=== PATIENT | female | born 1985 | race American Indian/Alaskan Native ===

== ENCOUNTER 2016-09-25 14:57 | Outpatient (CLI) | payer MEDICAID ==
[2016-09-25] MEDS ORDERED: LACTATED RINGERS 500 ML IV ONE (15:17)
[2016-09-25 16:10] VITALS: BP 126/77
[2016-09-25 17:07] LABS: Bacteria,Urine 1+ /HPF (Negative); Bilirubin,Urine NEG (Negative); Blood,Urine NEG (Negative); Ketones,Urine NEG (Negative); Leukocyte Esterase,Urine LG (Negative); Mucus,Urine 3+ /HPF; Nitrite,Urine NEG (Negative); Protein,Urine <15 mg/dL mg/dL (Negative); Urobilinogen,Urine < 2.0 mg/dL (<2.0)
== END 2016-09-25 18:40 | disposition home or self-care (01) ==
LOC: TRG 14:57
PROVIDERS: ATTEND Obstetrics & Gynecology
DX: O47.03 False labor before 37 completed weeks of gestation, third trimester (principal); Z3A.33 33 weeks gestation of pregnancy
CPT/HCPCS: 81001; J7120

== ENCOUNTER 2016-10-21 14:20 | Outpatient (CLI) | payer MEDICAID ==
[2016-10-21 15:05] VITALS: BP 109/60
[2016-10-21] MEDS ORDERED: LACTATED RINGERS 500 ML IV ONE (16:24)
== END 2016-10-21 17:17 | disposition home or self-care (01) ==
LOC: TRG 14:20
PROVIDERS: ATTEND Obstetrics & Gynecology
DX: O47.03 False labor before 37 completed weeks of gestation, third trimester (principal); Z3A.36 36 weeks gestation of pregnancy
CPT/HCPCS: 59025

== ENCOUNTER 2016-10-29 20:53 | Outpatient (CLI) | payer MEDICAID ==
[2016-10-29] MEDS ORDERED: VISTARIL PO ONE (21:24)
[2016-10-29 22:02] VITALS: BP 119/61
== END 2016-10-29 22:47 | disposition home or self-care (01) ==
LOC: TRG 20:53
PROVIDERS: ATTEND Obstetrics & Gynecology
DX: O47.1 False labor at or after 37 completed weeks of gestation (principal); Z3A.38 38 weeks gestation of pregnancy
CPT/HCPCS: 59025; 82962; Q0177

== ENCOUNTER 2016-11-10 21:03 | Inpatient (IN) | payer MEDICAID ==
[2016-11-10] MEDS ORDERED: SUBLIMAZE IV PRN (21:32)
[2016-11-10] MEDS ORDERED: XYLOCAINE 2% INFILTRATI ONE (21:32)
[2016-11-10] MEDS ORDERED: STADOL IV PRN (21:32)
[2016-11-10] MEDS ORDERED: BRETHINE IVP PRN (21:32)
[2016-11-10] MEDS ORDERED: MINERAL OIL PO PRN (21:32)
[2016-11-10] MEDS ORDERED: ePHEDrine SULFATE IV PRN ×2 (21:32→23:38)
[2016-11-10] MEDS ORDERED: PITOCin/NS 20 UNIT/1000ML DRIP 20 UNITS/1,000 ML BAG IV SCH (22:00)
[2016-11-10] MEDS ORDERED: PITOCin/NS 30 UNIT/500ML 30,000 MILLIUNITS/500 ML BAG IV ONE (22:05)
[2016-11-10] MEDS: LACTATED RINGERS 1,000 ML IV SCH ×2 (22:05→23:06)
[2016-11-10 22:09] LABS: Hematocrit 38.3 % (30.3-42.9); Hemoglobin 12.5 gm/dl (10.1-14.3); Mean Corpuscular HGB Conc 33 % (30-34); Mean Corpuscular Hemoglobin 26 pg (28-32); Mean Corpuscular Volume 80 fl (79-97); Platelet Count 178 K/mm3 (140-440); Red Cell Distribution Width 15.5 % (13.2-15.2); White Blood Count 8.9 K/mm3 (4.5-11.0)
--- NOTE | 2016-11-10 22:48 | History and Physical Report ---
History of Present Illness Date of examination: 11/10/16 Date of admission: 11/10/16 21:23 Chief complaint: SROM @ 1800 today, clear fluid History of present illness: EDC Calculations 11/12/2016 by early 1st trimester u/s Past History : 4 Term Births: 2 Premature Births: 1 Living Children: 1 Para: 3 Mult. Births: 0 Aborta: 0 Elect. Ab: 0 Spont. Ab: 0 # 1 Delivery date: 09/20 Weeks Gestation: 20 Sex: Male Comments: incompetent cervix # 2 Delivery date: 10/11/2008 Weeks Gestation: 41 labor: no Delivery type: Hours of labor: 16 Anesthesia type: epidural Delivery location: [facility] Infant Sex: Male weight: 8-1 Name: Chaitanya Comments: +cerclage # 3 Delivery date: 02/02/2010 Weeks Gestation: 39 Delivery type: Vaginal Hours of labor: 6 Anesthesia type: none Delivery location: [facility] Infant Sex: female weight: 7.56 Name: Saundra Comments: cerclage Past Medical History: Hypothyroidism (2015) Past Surgical History: Cerclage (2008) Cerclage (2009) Past Medical History Surgery (Non-fish tender): Cerclage (2008) Cerclage (2009) Abnormal PAP: negative LOUIS Exposure: negative Infertility: negative Uterine Anomaly: negative Uterine Surgery (not C/S): negative Other Gynecologic Problems: negative Social Hx: single, no etoh, no illicit drug use, no tobacco use Smoking History: Patient has never smoked. Patient is single Genetic History Congenital Heart Defect: Mom: no Dad: no Omar Disease: Mom: no Dad: no Thalassemia Mom: no Dad: no Neural Tube Defect Mom: no Dad: no Down's Syndrome Mom: no Dad: no Osman-Sachs Mom: no Dad: no Sickle Cell Disease/Trait Mom: no Dad: no Hemophilia Mom: no Dad: no Muscular Dystrophy Mom: no Dad: no Cystic Fibrosis Mom: no Dad: no [place] Chorea Mom: no Dad: no Mental Retardation Mom: no Dad: no Fragile X Mom: no Dad: no Other Genetic/Chromosomal Disorder Mom: no Dad: no Child w/other defect Mom: no Dad: no Enviromental Exposures Xray Exposure: no Medication, drug, or alcohol use since LMP: no Chemical/Other Exposure: no Exposure to Cat Liter: no Hx of Parvovirus (Fifth Disease): no Active Medications (reviewed today): FORMULA 27-1 MG ORAL TABS ( VIT-FE FUMARATE-FA) 1 po q day as directed Current Allergies (reviewed today): * NKDA (Critical) Past History - Obstetrical History Expected Date of Delivery: 11/12/16 Actual Gestation: 39 Week(s) 5 Day(s) : 4 Para: 3 Hx # Term Pregnancies: 2 Number of Pregnancies: 1 Spontaneous Abortions: 0 Induced : 0 Number of Living Children: 2 Medications and Allergies Allergies Allergy/AdvReac Type Severity Reaction Status Date / Time No Known Allergies Allergy Verified 05/03/15 15:28 Home Medications Medication Instructions Recorded Confirmed Last Taken Type Tablet 1 tab PO DAILY 09/25/16 11/10/16 11/10/16 History Active Meds: Active Medications Butorphanol Tartrate (Stadol) 2 mg IV Q2H PRN PRN Reason: Pain , Severe (7-10) Fentanyl (Sublimaze) 100 mcg IV Q2H PRN PRN Reason: Labor Pain Lactated Ringer's (Lactated Ringers) 1,000 mls @ 125 mls/hr IV DIRECT SHARRI Last Admin: 11/10/16 22:05 Dose: 999 mls/hr Oxytocin/Sodium Chloride (Pitocin/Ns 20 Unit/1000ml Drip) 20 units in 1,000 mls @ 125 mls/hr IV DIRECT SHARRI Oxytocin/Sodium Chloride (Pitocin/Ns 30 Unit/500ml) 30,000 milliunits in 500 mls @ 4 mls/hr IV DIRECT ONE; 4 MILLIUNITS/MIN PRN Reason: Protocol Stop: 11/16/16 03:04 Mineral Oil (Mineral Oil) 30 ml PO QHS PRN PRN Reason: Constipation Ondansetron HCl (Zofran) 4 mg IV Q8H PRN PRN Reason: Nausea And Vomiting Review of Systems All systems: negative Ears, nose, mouth and throat: headache, other (blurred vision and dizziness) - Vital Signs Vital signs: Vital Signs Pulse BP 92 H 136/82 11/10/16 21:06 11/10/16 21:06 Temp Pulse Resp BP Pulse Ox 99.2 F 96 H 20 132/83 11/10/16 21:16 11/10/16 21:59 11/10/16 21:16 11/10/16 21:59 - Physical Exam Breasts: Positive: normal Cardiovascular: Regular rate Lungs: Positive: Clear to auscultation, Normal air movement Abdomen: Positive: normal appearance, soft, normal bowel sounds Genitourinary (Female): Positive: normal external genitalia, normal perenium Vulva: both: normal Vagina: Positive: normal moisture Uterus: Positive: normal size, normal contour Anus/Rectum: Positive: normal perianal skin Extremities: Positive: normal Deep Tendon Reflex Grade: Normal +2 - Obstetrical FHR: category 1 Uterine Contraction Monitor Mode: External Cervical Dilatation: 3.5 (vertex, clear fluid) Cervical Effacement Percentage: 70 station: -2 Uterine Contraction Frequency (min): 3-7 Uterine Contraction Duration: 60-80 Uterine Contraction Pattern: Regular Uterine Tone Measurement Phase: Contraction Uterine Contraction Intensity: Mild Results Result Diagrams: 11/10/16 21:53 Abnormal lab results 11/10/16 Range/Units 21:53 MCH 26 L (28-32) pg RDW 15.5 H (13.2-15.2) % All other labs normal. Assessment and Plan 31y/o @ 39w5d, SROM, GBS neg, cerclage this removed @ 36 weeks d /t hx 20 week del in 2007 with 2 subsequent term deliveries. b/p 130/80' s but patient c/o PEREZ, blurred vision and feeling light headed. CAT 1 tracing, ctx 3-7 minutes. Plan to augment with pitocin, epidural as needed. Pre-e labs ordered. Orders in EMR, anticipate . Dr. Ledesma aware of admission and status. - Patient Problems (1) Headache Current Visit: Yes Status: Acute Qualifiers: Headache type: tension-type Headache chronicity pattern: acute headache Intractability: I Plan to address problem: will run Pre-e labs - admission b/p 130/80's but patient states was elevated in EMS (2) 39 weeks gestation of Current Visit: Yes Status: Acute (3) SROM (spontaneous rupture of membranes) Onset Date: 11/10/16 Current Visit: Yes Status: Acute Plan to address problem: limit SVEs monitor s/s infection augment labor with pitocin
[2016-11-10] MEDS ORDERED: NARCAN 2 MG/2 ML IV PRN (23:38)
--- NOTE | 2016-11-10 23:38 | Anesthesia Consultation ---
Anesthesia Consult and Med Hx Date of service: 11/10/16 - Airway Anesthetic Teeth Evaluation: Good ROM Head & Neck: Adequate Mental/Hyoid Distance: Adequate Intubation Access Assessment: Possibly Difficult - Pre-Operative Health Status ASA Pre-Surgery Classification: ASA3, Emergency Proposed Anesthetic Plan: Epidural, Spinal - Pulmonary Hx Asthma: No COPD: No Hx Pneumonia: No - Cardiovascular System Hx Hypertension: No - Central Nervous System Hx Seizures: No Hx Psychiatric Problems: No - Endocrine Hx Renal Disease: No Hx End Stage Renal Disease: No Hx Hypothyroidism: No Hx Hyperthyroidism: Yes (treatment with medication) - Hematic Hx Anemia: No Hx Sickle Cell Disease: No - Other Systems Hx Alcohol Use: Yes (occas social) Hx Obesity: Yes (BMI 43.8)
[2016-11-10] MEDS: fentaNYL-BUPIV 2 MCG/ML-0.125% 200 MCG/100 ML BAG EPIDURAL SCH (23:50)
[2016-11-10] MEDS: ZOFRAN IV PRN (23:53)
[2016-11-11] MEDS: ZOFRAN IV PRN (02:55)
--- NOTE | 2016-11-11 05:33 | Progress Note ---
Assessment and Plan Patient c/o urge to push with ctx. SVE tight 4cm, +1 station. Upon further investigation, cerclage knot noted to patient's left side, approx 2 o'clock on cervix. Attempted to remove with metal speculum and long scissors. Unable to see knot, only able to feel the knot. Dr. Ledesma called and will come in to attempt to remove. Patient and family made aware of findings. - Patient Problems (1) Headache Current Visit: Yes Status: Resolved Qualifiers: Headache type: tension-type Headache chronicity pattern: acute headache Intractability: I (2) 39 weeks gestation of Current Visit: Yes Status: Acute (3) SROM (spontaneous rupture of membranes) Onset Date: 11/10/16 Current Visit: Yes Status: Acute Subjective - Subjective Date of service: 11/11/16 Principal diagnosis: IUP 39+6, SROM Interval history: EDC Calculations 11/12/2016 by early 1st trimester u/s Past History : 4 Term Births: 2 Premature Births: 1 Living Children: 1 Para: 3 Mult. Births: 0 Aborta: 0 Elect. Ab: 0 Spont. Ab: 0 # 1 Delivery date: 09/20 Weeks Gestation: 20 Infant Sex: Male Comments: incompetent cervix # 2 Delivery date: 10/11/2008 Weeks Gestation: 41 labor: no Delivery type: Hours of labor: 16 Anesthesia type: epidural Delivery location: [facility] Sex: Male weight: 8-1 Name: Chaitanya Comments: +cerclage # 3 Delivery date: 02/02/2010 Weeks Gestation: 39 Delivery type: Vaginal Hours of labor: 6 Anesthesia type: none Delivery location: [facility] Sex: female weight: 7.56 Name: Saundra Comments: cerclage Past Medical History: Hypothyroidism (2016) Past Surgical History: Cerclage (2008) Cerclage (2009) Past Medical History Surgery (Non-cabin outfitter): Cerclage (2008) Cerclage (2009) Abnormal PAP: negative LOUIS Exposure: negative Infertility: negative Uterine Anomaly: negative Uterine Surgery (not C/S): negative Other Gynecologic Problems: negative Social Hx: single, no etoh, no illicit drug use, no tobacco use Smoking History: Patient has never smoked. Patient is single Genetic History Congenital Heart Defect: Mom: no Dad: no Omar Disease: Mom: no Dad: no Thalassemia Mom: no Dad: no Neural Tube Defect Mom: no Dad: no Down's Syndrome Mom: no Dad: no Osman-Sachs Mom: no Dad: no Sickle Cell Disease/Trait Mom: no Dad: no Hemophilia Mom: no Dad: no Muscular Dystrophy Mom: no Dad: no Cystic Fibrosis Mom: no Dad: no [place] Chorea Mom: no Dad: no Mental Retardation Mom: no Dad: no Fragile X Mom: no Dad: no Other Genetic/Chromosomal Disorder Mom: no Dad: no Child w/other defect Mom: no Dad: no Enviromental Exposures Xray Exposure: no Medication, drug, or alcohol use since LMP: no Chemical/Other Exposure: no Exposure to Cat Liter: no Hx of Parvovirus (Fifth Disease): no Active Medications (reviewed today): FORMULA 27-1 MG ORAL TABS ( VIT-FE FUMARATE-FA) 1 po q day as directed Current Allergies (reviewed today): * NKDA (Critical) Patient reports: new complaints (pressure) Objective - Vital Signs Vital Signs: Vital Signs - 12hr 11/10/16 11/10/16 11/10/16 21:06 21:16 21:59 Temperature 99.2 F Pulse Rate 92 H 96 H Pulse Rate [ Right Radial] Respiratory 20 Rate Blood Pressure 136/82 132/83 Blood Pressure [Right Arm] O2 Sat by Pulse Oximetry 11/10/16 11/10/16 11/10/16 22:41 23:11 23:25 Temperature Pulse Rate 97 H 93 H 85 Pulse Rate [ Right Radial] Respiratory Rate Blood Pressure 135/79 136/83 128/65 Blood Pressure [Right Arm] O2 Sat by Pulse Oximetry 11/10/16 11/10/16 11/10/16 23:27 23:29 23:31 Temperature Pulse Rate 92 H 100 H 88 Pulse Rate [ Right Radial] Respiratory Rate Blood Pressure 131/72 129/81 124/76 Blood Pressure [Right Arm] O2 Sat by Pulse Oximetry 11/10/16 11/10/16 11/10/16 23:33 23:35 23:45 Temperature 98.0 F Pulse Rate 80 92 H Pulse Rate [ 78 Right Radial] Respiratory 18 Rate Blood Pressure 123/65 124/66 Blood Pressure 135/65 [Right Arm] O2 Sat by Pulse Oximetry 11/10/16 11/11/16 11/11/16 23:46 00:06 00:36 Temperature Pulse Rate 83 82 90 Pulse Rate [ Right Radial] Respiratory Rate Blood Pressure 136/73 133/75 140/66 Blood Pressure [Right Arm] O2 Sat by Pulse Oximetry 11/11/16 11/11/16 11/11/16 01:07 01:43 01:48 Temperature Pulse Rate 88 85 82 Pulse Rate [ Right Radial] Respiratory Rate Blood Pressure 135/65 Blood Pressure [Right Arm] O2 Sat by Pulse 97 97 Oximetry 11/11/16 11/11/16 11/11/16 01:53 01:58 02:03 Temperature Pulse Rate 80 91 H 85 Pulse Rate [ Right Radial] Respiratory Rate Blood Pressure Blood Pressure [Right Arm] O2 Sat by Pulse 97 100 99 Oximetry 11/11/16 11/11/16 11/11/16 02:08 02:13 02:18 Temperature Pulse Rate 89 89 82 Pulse Rate [ Right Radial] Respiratory Rate Blood Pressure Blood Pressure [Right Arm] O2 Sat by Pulse 98 97 98 Oximetry 11/11/16 11/11/16 11/11/16 02:23 02:27 02:28 Temperature Pulse Rate 90 89 90 Pulse Rate [ Right Radial] Respiratory Rate Blood Pressure 116/59 Blood Pressure [Right Arm] O2 Sat by Pulse 99 94 99 Oximetry 11/11/16 11/11/16 11/11/16 02:33 02:38 02:43 Temperature Pulse Rate 78 82 88 Pulse Rate [ Right Radial] Respiratory Rate Blood Pressure Blood Pressure [Right Arm] O2 Sat by Pulse 97 97 99 Oximetry 11/11/16 11/11/16 11/11/16 02:48 02:53 02:58 Temperature Pulse Rate 86 88 89 Pulse Rate [ Right Radial] Respiratory Rate Blood Pressure Blood Pressure [Right Arm] O2 Sat by Pulse 99 98 97 Oximetry 11/11/16 11/11/16 11/11/16 03:03 03:08 03:13 Temperature Pulse Rate 88 86 88 Pulse Rate [ Right Radial] Respiratory Rate Blood Pressure Blood Pressure [Right Arm] O2 Sat by Pulse 98 98 96 Oximetry 11/11/16 11/11/16 11/11/16 03:18 03:23 03:25 Temperature Pulse Rate 84 84 86 Pulse Rate [ Right Radial] Respiratory Rate Blood Pressure 130/79 Blood Pressure [Right Arm] O2 Sat by Pulse 97 97 Oximetry 11/11/16 11/11/16 11/11/16 03:28 03:33 03:36 Temperature 97.6 F Pulse Rate 84 92 H Pulse Rate [ 92 H Right Radial] Respiratory 20 Rate Blood Pressure Blood Pressure 130/79 [Right Arm] O2 Sat by Pulse 98 98 Oximetry 11/11/16 11/11/16 11/11/16 03:38 03:43 03:48 Temperature Pulse Rate 86 89 82 Pulse Rate [ Right Radial] Respiratory Rate Blood Pressure Blood Pressure [Right Arm] O2 Sat by Pulse 96 97 95 Oximetry 11/11/16 11/11/16 11/11/16 03:53 03:58 04:03 Temperature Pulse Rate 84 88 84 Pulse Rate [ Right Radial] Respiratory Rate Blood Pressure Blood Pressure [Right Arm] O2 Sat by Pulse 95 97 97 Oximetry 11/11/16 11/11/16 11/11/16 04:08 04:13 04:18 Temperature Pulse Rate 113 H 96 H 90 Pulse Rate [ Right Radial] Respiratory Rate Blood Pressure Blood Pressure [Right Arm] O2 Sat by Pulse 99 100 98 Oximetry 11/11/16 11/11/16 11/11/16 04:23 04:25 04:28 Temperature Pulse Rate 88 88 85 Pulse Rate [ Right Radial] Respiratory Rate Blood Pressure 123/71 Blood Pressure [Right Arm] O2 Sat by Pulse 100 97 Oximetry 11/11/16 11/11/16 11/11/16 04:33 04:38 04:43 Temperature Pulse Rate 85 101 H 86 Pulse Rate [ Right Radial] Respiratory Rate Blood Pressure Blood Pressure [Right Arm] O2 Sat by Pulse 99 99 98 Oximetry 11/11/16 11/11/16 11/11/16 04:48 04:53 04:58 Temperature Pulse Rate 87 90 104 H Pulse Rate [ Right Radial] Respiratory Rate Blood Pressure Blood Pressure [Right Arm] O2 Sat by Pulse 99 100 99 Oximetry 11/11/16 11/11/16 11/11/16 05:03 05:08 05:13 Temperature Pulse Rate 91 H 83 95 H Pulse Rate [ Right Radial] Respiratory Rate Blood Pressure Blood Pressure [Right Arm] O2 Sat by Pulse 99 99 99 Oximetry - Exam Breasts: normal Cardiovascular: Regular rate Lungs: Clear to auscultation Abdomen: Present: normal appearance, soft Vulva: both: normal Uterus: Present: normal FHR: auscultation normal, category 1 Uterine Contraction Monitor Mode: External Cervical Dilatation: 4 (cerclage knot noted @ 2) Uterine Contraction Pattern: Regular Uterine Tone Measurement Phase: Contraction Uterine Contraction Intensity: Strong/Firm Extremities: normal - Labs Labs: Abnormal Labs 11/10/16 21:53 MCH 26 L RDW 15.5 H Laboratory Results - last 24 hr 11/10/16 11/10/16 21:53 21:53 WBC 8.9 RBC 4.80 Hgb 12.5 Hct 38.3 MCV 80 MCH 26 L MCHC 33 RDW 15.5 H Plt Count 178 Blood Type B POSITIVE Antibody Screen TNR RYANNE Antibody Screen Negative
[2016-11-11] MEDS ORDERED: ANCEF/STERILE WATER 2 GM/20 ML 2 GM/20 ML SYRINGE IV ONE (06:22)
[2016-11-11] MEDS ORDERED: ceFAZolin 2 GM in NACL 0.9% 100 ML IV SCH (06:30)
[2016-11-11] MEDS: fentaNYL-BUPIV 2 MCG/ML-0.125% 200 MCG/100 ML BAG EPIDURAL SCH ×2 (06:31→15:24)
[2016-11-11] MEDS: LACTATED RINGERS 1,000 ML IV SCH ×2 (06:33→14:15)
--- NOTE | 2016-11-11 06:51 | Progress Note ---
Assessment and Plan - Patient Problems (1) 39 weeks gestation of Current Visit: Yes Status: Acute (2) Active labor at term Current Visit: Yes Status: Acute (3) SROM (spontaneous rupture of membranes) Onset Date: 11/10/16 Current Visit: Yes Status: Acute (4) Cervical incompetence affecting management of mother, antepartum Current Visit: No Status: Acute Plan to address problem: Stitch palpated with ? knot at 2o'clock. Stitch cut at 200 position. Cervix now 4/60/0. Start Ancef, hold pitocin for now. Subjective - Subjective Date of service: 11/11/16 Principal diagnosis: IUP 39+6, SROM Patient reports: new complaints (pressure) Objective - Vital Signs Vital Signs: Vital Signs - 12hr 11/10/16 11/10/16 11/10/16 21:06 21:16 21:59 Temperature 99.2 F Pulse Rate 92 H 96 H Pulse Rate [ Right Radial] Respiratory 20 Rate Blood Pressure 136/82 132/83 Blood Pressure [Right Arm] O2 Sat by Pulse Oximetry 11/10/16 11/10/16 11/10/16 22:41 23:11 23:25 Temperature Pulse Rate 97 H 93 H 85 Pulse Rate [ Right Radial] Respiratory Rate Blood Pressure 135/79 136/83 128/65 Blood Pressure [Right Arm] O2 Sat by Pulse Oximetry 11/10/16 11/10/16 11/10/16 23:27 23:29 23:31 Temperature Pulse Rate 92 H 100 H 88 Pulse Rate [ Right Radial] Respiratory Rate Blood Pressure 131/72 129/81 124/76 Blood Pressure [Right Arm] O2 Sat by Pulse Oximetry 11/10/16 11/10/16 11/10/16 23:33 23:35 23:45 Temperature 98.0 F Pulse Rate 80 92 H Pulse Rate [ 78 Right Radial] Respiratory 18 Rate Blood Pressure 123/65 124/66 Blood Pressure 135/65 [Right Arm] O2 Sat by Pulse Oximetry 11/10/16 11/11/16 11/11/16 23:46 00:06 00:36 Temperature Pulse Rate 83 82 90 Pulse Rate [ Right Radial] Respiratory Rate Blood Pressure 136/73 133/75 140/66 Blood Pressure [Right Arm] O2 Sat by Pulse Oximetry 11/11/16 11/11/16 11/11/16 01:07 01:43 01:48 Temperature Pulse Rate 88 85 82 Pulse Rate [ Right Radial] Respiratory Rate Blood Pressure 135/65 Blood Pressure [Right Arm] O2 Sat by Pulse 97 97 Oximetry 11/11/16 11/11/16 11/11/16 01:53 01:58 02:03 Temperature Pulse Rate 80 91 H 85 Pulse Rate [ Right Radial] Respiratory Rate Blood Pressure Blood Pressure [Right Arm] O2 Sat by Pulse 97 100 99 Oximetry 11/11/16 11/11/16 11/11/16 02:08 02:13 02:18 Temperature Pulse Rate 89 89 82 Pulse Rate [ Right Radial] Respiratory Rate Blood Pressure Blood Pressure [Right Arm] O2 Sat by Pulse 98 97 98 Oximetry 11/11/16 11/11/16 11/11/16 02:23 02:27 02:28 Temperature Pulse Rate 90 89 90 Pulse Rate [ Right Radial] Respiratory Rate Blood Pressure 116/59 Blood Pressure [Right Arm] O2 Sat by Pulse 99 94 99 Oximetry 11/11/16 11/11/16 11/11/16 02:33 02:38 02:43 Temperature Pulse Rate 78 82 88 Pulse Rate [ Right Radial] Respiratory Rate Blood Pressure Blood Pressure [Right Arm] O2 Sat by Pulse 97 97 99 Oximetry 11/11/16 11/11/16 11/11/16 02:48 02:53 02:58 Temperature Pulse Rate 86 88 89 Pulse Rate [ Right Radial] Respiratory Rate Blood Pressure Blood Pressure [Right Arm] O2 Sat by Pulse 99 98 97 Oximetry 11/11/16 11/11/16 11/11/16 03:03 03:08 03:13 Temperature Pulse Rate 88 86 88 Pulse Rate [ Right Radial] Respiratory Rate Blood Pressure Blood Pressure [Right Arm] O2 Sat by Pulse 98 98 96 Oximetry 11/11/16 11/11/16 11/11/16 03:18 03:23 03:25 Temperature Pulse Rate 84 84 86 Pulse Rate [ Right Radial] Respiratory Rate Blood Pressure 130/79 Blood Pressure [Right Arm] O2 Sat by Pulse 97 97 Oximetry 11/11/16 11/11/16 11/11/16 03:28 03:33 03:36 Temperature 97.6 F Pulse Rate 84 92 H Pulse Rate [ 92 H Right Radial] Respiratory 20 Rate Blood Pressure Blood Pressure 130/79 [Right Arm] O2 Sat by Pulse 98 98 Oximetry 0411/11/16 11/11/16 03:38 03:43 03:48 Temperature Pulse Rate 86 89 82 Pulse Rate [ Right Radial] Respiratory Rate Blood Pressure Blood Pressure [Right Arm] O2 Sat by Pulse 96 97 95 Oximetry 11/11/16 11/11/16 11/11/16 03:53 03:58 04:03 Temperature Pulse Rate 84 88 84 Pulse Rate [ Right Radial] Respiratory Rate Blood Pressure Blood Pressure [Right Arm] O2 Sat by Pulse 95 97 97 Oximetry 11/11/16 11/11/16 11/11/16 04:08 04:13 04:18 Temperature Pulse Rate 113 H 96 H 90 Pulse Rate [ Right Radial] Respiratory Rate Blood Pressure Blood Pressure [Right Arm] O2 Sat by Pulse 99 100 98 Oximetry 11/11/16 11/11/16 11/11/16 04:23 04:25 04:28 Temperature Pulse Rate 88 88 85 Pulse Rate [ Right Radial] Respiratory Rate Blood Pressure 123/71 Blood Pressure [Right Arm] O2 Sat by Pulse 100 97 Oximetry 11/11/16 11/11/16 11/11/16 04:33 04:38 04:43 Temperature Pulse Rate 85 101 H 86 Pulse Rate [ Right Radial] Respiratory Rate Blood Pressure Blood Pressure [Right Arm] O2 Sat by Pulse 99 99 98 Oximetry 11/11/16 11/11/16 11/11/16 04:48 04:53 04:58 Temperature Pulse Rate 87 90 104 H Pulse Rate [ Right Radial] Respiratory Rate Blood Pressure Blood Pressure [Right Arm] O2 Sat by Pulse 99 100 99 Oximetry 11/11/16 11/11/16 11/11/16 05:03 05:08 05:13 Temperature Pulse Rate 91 H 83 95 H Pulse Rate [ Right Radial] Respiratory Rate Blood Pressure Blood Pressure [Right Arm] O2 Sat by Pulse 99 99 99 Oximetry 11/11/16 11/11/16 11/11/16 05:18 05:23 05:27 Temperature Pulse Rate 84 100 H 93 H Pulse Rate [ Right Radial] Respiratory Rate Blood Pressure 137/79 Blood Pressure [Right Arm] O2 Sat by Pulse 100 99 Oximetry 11/11/16 11/11/16 11/11/16 05:28 05:33 05:38 Temperature Pulse Rate 88 88 108 H Pulse Rate [ Right Radial] Respiratory Rate Blood Pressure Blood Pressure [Right Arm] O2 Sat by Pulse 99 97 97 Oximetry 11/11/16 11/11/16 11/11/16 05:43 05:48 05:53 Temperature Pulse Rate 91 H 91 H 89 Pulse Rate [ Right Radial] Respiratory Rate Blood Pressure Blood Pressure [Right Arm] O2 Sat by Pulse 97 98 99 Oximetry 11/11/16 11/11/16 11/11/16 05:58 06:03 06:08 Temperature Pulse Rate 93 H 91 H 87 Pulse Rate [ Right Radial] Respiratory Rate Blood Pressure Blood Pressure [Right Arm] O2 Sat by Pulse 99 99 99 Oximetry 11/11/16 11/11/16 11/11/16 06:13 06:18 06:23 Temperature Pulse Rate 89 93 H 84 Pulse Rate [ Right Radial] Respiratory Rate Blood Pressure Blood Pressure [Right Arm] O2 Sat by Pulse 98 99 99 Oximetry 11/11/16 11/11/16 11/11/16 06:26 06:28 06:33 Temperature Pulse Rate 96 H 95 H 92 H Pulse Rate [ Right Radial] Respiratory Rate Blood Pressure 133/69 Blood Pressure [Right Arm] O2 Sat by Pulse 99 97 Oximetry 11/11/16 06:38 Temperature Pulse Rate 87 Pulse Rate [ Right Radial] Respiratory Rate Blood Pressure Blood Pressure [Right Arm] O2 Sat by Pulse 98 Oximetry - Exam Vulva: both: normal Cervical Dilatation: 4 Cervical Effacement Percentage: 60 station: 0 Uterine Contraction Pattern: Regular - Labs Labs: Abnormal Labs 11/10/16 21:53 MCH 26 L RDW 15.5 H Laboratory Results - last 24 hr 11/10/16 11/10/16 21:53 21:53 WBC 8.9 RBC 4.80 Hgb 12.5 Hct 38.3 MCV 80 MCH 26 L MCHC 33 RDW 15.5 H Plt Count 178 Blood Type B POSITIVE Antibody Screen TNR RYANNE Antibody Screen Negative
[2016-11-11 07:02] LABS: Alanine Aminotransferase 24 units/L (7-56); Lactate Dehydrogenase 196 units/L (91-180); Uric Acid 4.3 mg/dL (3.5-7.6)
--- NOTE | 2016-11-11 07:16 | Event Note ---
Date: 11/11/16 Plan of care for now discussed. She was informed Dr. Yoder will evaluate her to determine further course. Questions encouraged and answered. She and family voiced understanding, state no other concerns at this time.
--- NOTE | 2016-11-11 09:17 | Event Note ---
Date: 11/11/16 Events overnight and this morning noted. My exam the cervix still 5-5-1/2 only 50-60% effaced no distinct stitch felt but feel that now is admitted at time of the cerclage placement and removal of the patient's significant scar tissue from her previous cerclage placements. The Patient and Possibly That Scarring Could Prevent Further Dilatation and if patient has adequate contractions without change in cervix will be indication for delivery. We'll start Pitocin internal monitoring's had been placed. All questions answered.
[2016-11-11 10:53] LABS: Bilirubin,Urine NEG (Negative); Blood,Urine LG (Negative); Ketones,Urine 80 mg/dL (Negative); Leukocyte Esterase,Urine MOD (Negative); Mucus,Urine 3+ /HPF; Nitrite,Urine NEG (Negative); Urobilinogen,Urine < 2.0 mg/dL (<2.0)
[2016-11-11 10:57] LABS: RBC,Urine > 182.0 /HPF (0.0-6.0)
[2016-11-11] MEDS ORDERED: MARCAINE-EPI/PF 0.5%-1:200,000 INFILTRATI ONE (14:22)
--- NOTE | 2016-11-11 14:26 | Event Note ---
Date: 11/11/16 Patient with change in her cervix cervix now 7-8 cm 70 date of percent effacement noted and now the 0 to -1 station. This is an improvement still patient has some swelling around the cervix. The temperature is 99F. We'll watch the progress in labor and patient's temperature and heart rate hopeful progress to vaginal delivery. Did discuss with patient indications for operative delivery.
[2016-11-11] MEDS ORDERED: TYLENOL PO ONE (14:27)
--- NOTE | 2016-11-11 18:00 | Procedure Note ---
OB Delivery Note - Delivery Date of Delivery: 11/11/16 Surgeon: GABI GOODMAN Estimated blood loss: 300cc - Vaginal Delivery position: OA Intrapartum events: none Delivery augmentation: pitocin Delivery monitor: external FHT, external uterine, internal FHT, internal uterine Route of delivery: Delivery placenta: spontaneous Episiotomy: none Delivery laceration: none Anesthesia: epidural - A at 1 minute: 8 Gender: Male
[2016-11-11] MEDS ORDERED: TYLENOL PO PRN (20:58)
[2016-11-11] MEDS ORDERED: TUCKS PAD TP PRN (20:58)
[2016-11-11] MEDS ORDERED: NORCO 5/325 PO PRN (20:58)
[2016-11-11] MEDS ORDERED: DERMOPLAST TP PRN (20:58)
[2016-11-11] MEDS ORDERED: LANSINOH TP PRN (20:58)
[2016-11-11] MEDS ORDERED: BENADRYL PO PRN (20:58)
[2016-11-11] MEDS ORDERED: MILK OF MAGNESIA PO PRN (20:58)
[2016-11-11] MEDS ORDERED: SODIUM CHLORIDE FLUSH SYRINGE 10 ML IV NR (20:58)
[2016-11-11] MEDS ORDERED: MOTRIN PO SCH (20:58)
[2016-11-11] MEDS ORDERED: ZOFRAN IV PRN (20:58)
[2016-11-11] MEDS ORDERED: PHENERGAN PO PRN (20:58)
[2016-11-11] MEDS ORDERED: DULCOLAX PR PRN (20:58)
[2016-11-11] MEDS: COLACE PO SCH (23:46)
[2016-11-12] MEDS: MOTRIN PO SCH ×3 (05:28→19:33)
[2016-11-12] MEDS ORDERED: BOOSTRIX IM ONE (06:00)
[2016-11-12 06:37] LABS: Hematocrit 31.9 % (30.3-42.9); Hemoglobin 10.6 gm/dl (10.1-14.3)
[2016-11-12] MEDS: PRENATAL VITAMIN PO SCH (10:52)
[2016-11-12] MEDS: COLACE PO SCH ×2 (10:53→22:14)
--- NOTE | 2016-11-12 12:37 | Progress Note ---
Assessment and Plan - Patient Problems (1) Encounter for full-term uncomplicated delivery Current Visit: Yes Status: Acute Plan to address problem: Continue routine care. Patient is breast-feeding and desires tubal ligation for contraception. (2) Numbness and tingling of foot Current Visit: Yes Status: Acute Qualifiers: Laterality: right Qualified Code(s): R20.2 - Paresthesia of skin Plan to address problem: We'll consult anesthesia to evaluate Subjective - Subjective Principal diagnosis: IUP 39+6, SROM Patient reports: appetite normal, voiding normally, pain well controlled, ambulating normally [place]: doing well Objective - Vital Signs Latest vital signs: Vital Signs Temp Pulse Pulse Resp BP BP Pulse Ox 11/12/16 09:02 98.2 F 82 20 125/68 11/12/16 04:00 98.6 F 77 16 118/64 11/12/16 00:00 98.6 F 78 16 118/59 11/11/16 21:00 98.6 F 67 16 136/77 11/11/16 19:38 87 111/59 11/11/16 19:23 88 125/60 11/11/16 19:08 88 132/60 11/11/16 18:53 83 129/74 11/11/16 18:50 98.9 F 20 11/11/16 18:38 93 H 128/70 11/11/16 18:23 97 H 131/78 11/11/16 18:08 100 H 133/76 11/11/16 17:54 90 133/73 11/11/16 17:50 18 11/11/16 17:40 98.5 F 18 11/11/16 17:39 97 H 143/80 11/11/16 17:35 103 H 139/88 11/11/16 17:05 90 115/73 11/11/16 16:50 98.9 F 20 11/11/16 16:34 102 H 131/78 11/11/16 16:04 90 115/56 11/11/16 15:35 96 H 144/77 11/11/16 15:04 98 H 133/78 11/11/16 14:34 104 H 141/85 11/11/16 14:10 99.6 F 20 11/11/16 14:06 96 H 122/65 11/11/16 13:52 105 H 98 11/11/16 13:46 101 H 97 11/11/16 13:41 107 H 97 11/11/16 13:36 109 H 97 11/11/16 13:31 98 H 98 11/11/16 13:26 104 H 98 11/11/16 13:21 111 H 96 11/11/16 13:16 112 H 96 11/11/16 13:11 103 H 96 11/11/16 13:06 111 H 96 11/11/16 13:01 96 H 94 11/11/16 12:56 96 H 95 11/11/16 12:51 102 H 95 11/11/16 12:46 100 H 94 11/11/16 12:41 103 H 96 11/11/16 12:38 99.5 F 11/11/16 12:36 94 H 117/56 96 11/11/16 12:35 99.0 F 18 Intake and Output 11/11/16 11/12/16 11/12/16 22:59 06:59 14:59 Intake Total 825 800 340 Output Total 1350 1200 Balance -525 -400 340 Intake: IV 125 PITOCin/NS 20 UNIT/1000ML 125 DRIP 20 units In 1,000 ml @ 125 mls/hr IV DIRECT SHARRI Rx#:[id number] Oral 300 500 340 Intake, Free Water 400 300 Output: Urine 1350 1200 Indwelling Catheter 550 Void 800 1200 Other: Total, Intake Amount 300 300 Total, Output Amount 800 600 Voiding Method Bedside Commode # Voids 2 Void 1 1 Estimated Blood Loss 300 - Exam Breasts: Present: deferred Cardiovascular: Present: Regular rate Lungs: Present: Normal air movement Abdomen: Present: normal appearance, soft, normal bowel sounds Uterus: Present: firm, fundal height below umbilicus Extremities: Present: other (patient complains to have numbness in her right foot), edema Deep Tendon Reflex Grade: Normal +2
[2016-11-13] MEDS: MOTRIN PO SCH ×3 (00:27→12:40)
--- NOTE | 2016-11-13 06:41 | Discharge Summary ---
Providers - Providers Date of Admission: 11/10/16 21:23 Date of discharge: 11/13/16 (pt req d/c ) Attending physician: BRAD MORELAND 11/11/16 20:58 Consult to Dandy Operator [CONS] Routine Reason For Exam: assistance with , SNS Primary care physician: BRAD MORELAND Hospitalization Reason for admission: active labor Delivery: Episiotomy: none Laceration: none Incision: normal Other procedures: none complications: none Discharge diagnosis: IUP at term delivered [place] baby: male Hospital course: uncomplicated vaginal delivery Pt w/o complaint VSS FF below umb Lochia small Perineum intact H&H 05/15 drop r/ t blood loss from delivery Doing well s/p vag delivery P: d/c today with instructions RTO 4 weeks for PP care. Condition at discharge: Good Disposition: DISCHARGED TO HOME OR SELFCARE - Discharge Diagnoses (1) Spontaneous vaginal delivery Status: Acute Comment: RTO 4 weeks PP care Pt desires tubal Plan - Discharge Medications Prescriptions: Ibuprofen [Motrin 800 MG tab] 800 mg PO TID PRN #30 tablet PRN Reason: Pain Lidocain2.5%/Prilocai2.5% [Emla] 5 gm TP PRN #1 tube - Provider Discharge Summary Activity: routine, no sex for 6 weeks, no heavy lifting 4 weeks, no strenuous exercise Diet: routine Instructions: routine Additional instructions: [] Smoking cessation referral if applicable(refer to patient education folder for contact #) [] Refer to [facility] Booklet Call your doctor immediately for: * Fever > 100.5 * Heavy vaginal bleeding ( >1 pad per hour) * Severe persistent headache * Shortness of breath * Reddened, hot, painful area to leg or breast * Drainage or odor from incision. * Keep incision clean and dry at all times and follow doctor's instructions regarding bathing/showering - Follow up plan Follow up: BRAD MORELAND MD [Primary Care Provider] - 7 Days (Congratulations! Please call [phone] to schedule your visit in 4 weeks and your son's circumcision in 1 week. Bring the EMLA cream with you to his visit. Take medication as prescribed. Call with concerns.)
[2016-11-13] MEDS: COLACE PO SCH (12:40)
[2016-11-13] MEDS: PRENATAL VITAMIN PO SCH (12:40)
[2016-11-13 16:58] VITALS: BP 128/60
== END 2016-11-13 17:50 | disposition home or self-care (01) | DRG 775 ==
LOC: TRG 21:03 → LD 21:23 → OB 11-11 20:43
PROVIDERS: ADMIT Obstetrics & Gynecology; ATTEND Obstetrics & Gynecology
PROC: 10E0XZZ Delivery of Products of Conception, External Approach (ICD-10-PCS; principal; 2016-11-11)
PROC: 00HU33Z Insertion of Infusion Device into Spinal Canal, Percutaneous Approach (ICD-10-PCS; 2016-11-11)
PROC: 3E0R3CZ (ICD-10-PCS; 2016-11-11)
DX: O34.33 Maternal care for cervical incompetence, third trimester (principal); O42.92 Full-term premature rupture of membranes, unspecified as to length of time between rupture and onset of labor; G44.209 Tension-type headache, unspecified, not intractable; O99.284 Endocrine, nutritional and metabolic diseases complicating childbirth; E03.9 Hypothyroidism, unspecified; O99.214 Obesity complicating childbirth; R20.2 Paresthesia of skin; E66.9 Obesity, unspecified; O99.354 Diseases of the nervous system complicating childbirth; Z3A.39 39 weeks gestation of pregnancy; Z68.41 Body mass index [BMI] 40.0-44.9, adult; Z37.0 Single live birth
CPT/HCPCS: 36415; 81001; 82565; 83615; 84450; 84460; 84550; 85014; 85018; 85027; 86592; 86850; 86900; 86901; 90471; 90715; 99211; G0463; J0690; J2405; J2590; J7120